=== PATIENT | female | born 1960 | race Caucasian/White ===

== ENCOUNTER 2021-03-25 13:09 | Emergency (ER) | payer OTHER ==
[~2021-03-25 13:09] MED LIST: BACLOFEN 10MG T10 MG PO
[2021-03-25 14:16] LABS: BASOPHIL 0.6 % (0-2); EOSINOPHIL 0.3 % (0-5); HCT 44.6 % (37.0-47.0); HGB 14.4 g/dl (12.5-16.0); LYMPHOCYTE 15.3 % (15-48); MCH 29.2 pg (25.0-31.0); MCHC 32.3 g/dL (32.0-36.0); MCV 90.5 fL (78.0-100.0); MONOCYTE 3.4 % (0-12); MPV 11.8 fL (6.0-9.5); NEUTROPHIL 80.1 % (41-80); NRBC 0; PLT 199 K/uL (150-400); RBC 4.93 M/uL (4.20-5.40); RDW 13.3 % (11.5-14.0); WBC 3.5 K/uL (4.0-10.5)
[2021-03-25 14:31] LABS: ALBUMIN 3.5 g/dL (3.4-5.0); BILIRUBIN NEGATIVE (NEGATIVE); BILIRUBIN - TOTAL 0.4 mg/dL (0.2-1.0); BLOOD NEGATIVE Ery/uL (NEGATIVE); CLARITY CLEAR (CLEAR); COLOR YELLOW (YELLOW); CREATININE 0.79 mg/dL (0.51-0.95); GLOBULIN (CALCULATION) 4.1 g/dL; GLUCOSE (U) NORMAL (NORMAL); LEUKOCYTES NEGATIVE Leu/uL (NEGATIVE); NITRITE NEGATIVE (NEGATIVE); POTASSIUM 4.4 mmol/L (3.5-5.1); PROTEIN NEGATIVE (NEGATIVE); SPECIFIC GRAVITY 1.025 (1.001-1.030); TOTAL PROTEIN 7.6 g/dL (6.4-8.2); pH 6.5 (5.0-9.0)
[2021-03-25 14:49] LABS: LACTIC ACID 1.2 mmol/L (0.4-1.9)
[2021-03-25] MEDS ORDERED: ONDANSETRON ODT4 MG PO (16:22)
[2021-03-25] MEDS ORDERED: NORCO 5-325 TA1 EACH PO (16:22)
== END 2021-03-25 16:34 | disposition home or self-care (01) ==
LOC: FER 13:09
PROVIDERS: Emergency Medicine
DX: K80.20 Calculus of gallbladder without cholecystitis without obstruction (principal); I48.91 Unspecified atrial fibrillation; F17.210 Nicotine dependence, cigarettes, uncomplicated; Z88.0 Allergy status to penicillin; Z88.8 Allergy status to other drugs, medicaments and biological substances; Z20.822 Contact with and (suspected) exposure to COVID-19
CPT/HCPCS: 36415; 76705; 80053; 81003; 83605; 84145; 84484; 85025; 93005; J1170; J2405; J7030; U0002

== ENCOUNTER → 2021-05-15 | Day surgery (SDC) | payer OTHER ==
[~2021-05-15] VITALS: Ht 165.1 cm; Wt 88.0 kg
[~2021-05-15] MED LIST changes: +ACETAMINOPHEN500 M1 PO; +AMIODARONE HCL200 M1 PO; +AMLODIPINE BES2.5 MG PO; +COLACE100 MG PO; +ELIQUIS5 MG PO; +MEDROL 4MG DOSEP4 MG PO; +MEDROL4 MG PO; +METOCLOPRAMIDE H5 M1 PO; +NAPROXEN500 MG PO; +NORCO 5-325 TA1 EACH PO; +OMEPRAZOLE40 MG PO; +ONDANSETRON ODT4 MG PO; +OXY-IR 5MG5 MG PO; +TOLTERODINE TART2 MG PO
== END | disposition home or self-care (01) ==
LOC: FAS 07:04
DX: K80.10 Calculus of gallbladder with chronic cholecystitis without obstruction (principal); I10 Essential (primary) hypertension; E78.00 Pure hypercholesterolemia, unspecified; F41.9 Anxiety disorder, unspecified; I48.91 Unspecified atrial fibrillation; F17.200 Nicotine dependence, unspecified, uncomplicated; M06.9 Rheumatoid arthritis, unspecified; K21.9 Gastro-esophageal reflux disease without esophagitis; J18.9 Pneumonia, unspecified organism; M81.0 Age-related osteoporosis without current pathological fracture; Z79.01 Long term (current) use of anticoagulants; Z79.899 Other long term (current) drug therapy; Z88.0 Allergy status to penicillin; Z88.8 Allergy status to other drugs, medicaments and biological substances; Z95.818 Presence of other cardiac implants and grafts; Z98.51 Tubal ligation status; Z82.49 Family history of ischemic heart disease and other diseases of the circulatory system
CPT/HCPCS: 36415; J1100; J1335; J1644; J1885; J2250; J2405; J2704; J3010; J7120